=== PATIENT | female | born 1955 | race Caucasian/White ===

== ENCOUNTER 2017-07-28 23:50 | Emergency (ER) | payer OTHER ==
[~2017-07-28] VITALS: Ht 157.5 cm; Wt 86.2 kg
[~2017-07-28 23:50] MED LIST: ACET-787 PO; ALPR0.5T2 PO; ARIP15TA1 PO; ARIP30TA1 PO; ATOR40TA PO; ATRO1TAB PO; BEN10 PO; CARI350T PO; FLUO-387 PO; IPRA14.7 IH; METF500T PO; OMEP40EC1 PO; PAM25 PO; PARO40TA1 PO; SOLI10TA PO; TRAM50TA1 PO; TRAZ-286 PO; [UNRECOGNIZED DRUG - CODE] TD
--- NOTE | 2017-07-28 23:55 | NUR ---
PT TO ER BED 4
[2017-07-29] VITALS: BP 128/51
--- NOTE | 2017-07-29 | NUR ---
PATIENT IS A 61 Y/O FEMALE WHO PRESENTS TO THE ED S/P FALL. PT STATES THAT SHE WAS WALKING DOWN HER DRIVEWAY WHEN SHE FELL. PT REPORTS 7/10 ACHING LEFT ARM AND KNEE PAIN. NOTED SMALL LAC TO RIGHT KNEE, CONTROLLED BLEEDING. LEG CONTAINS FULL ROM, NO OBVIOUS DEFORMITY NOTED, CMS INTACT. PT AAOX4, RR EVEN/UNLABORED. PT REPOSITIONED FOR COMFORT, BED IN LOWEST POSITION. ER MD DR. PEREZ NOTIFIED. WILL CONTINUE TO MONITOR. Addendum: 07/29/17 at 0023 by [email or web address] PATIENT IS A 61 Y/O FEMALE WHO PRESENTS TO THE ED S/P FALL. PT STATES THAT SHE WAS WALKING DOWN HER DRIVEWAY WHEN SHE FELL. PT REPORTS 7/10 ACHING R ARM AND KNEE PAIN. NOTED SMALL LAC TO RIGHT KNEE, CONTROLLED BLEEDING. LEG CONTAINS FULL ROM, NO OBVIOUS DEFORMITY NOTED, CMS INTACT. PT AAOX4, RR EVEN/UNLABORED. PT REPOSITIONED FOR COMFORT, BED IN LOWEST POSITION. ER MD DR. PEREZ NOTIFIED. WILL CONTINUE TO MONITOR.
[2017-07-29] MEDS ORDERED: KETOROLAC 30 MG/ML VIAL IM ONE (00:25)
--- NOTE | 2017-07-29 01:30 | NUR ---
PATIENT RESTING AT THIS TIME. NO SIGNS OF DISTRESS.
[2017-07-29 02:34] VITALS: BP 119/65
--- NOTE | 2017-07-29 02:34 | NUR ---
Patient discharged with v/s stable. Written and verbal after care instructions given and explained. Patient alert, oriented and verbalized understanding of instructions. Ambulatory with steady gait. All questions addressed prior to discharge. ID band removed. Patient advised to follow up with PMD. Rx of NORCO 5MG-325MG AND NAPROSYN 500MG given. Patient educated on indication of medication including possible reaction and side effects. Opportunity to ask questions provided and answered.
== END 2017-07-29 02:34 | disposition home or self-care (01) ==
LOC: MED 23:50
DX: S81.011A Laceration without foreign body, right knee, initial encounter (principal); S53.401A Unspecified sprain of right elbow, initial encounter; J44.9 Chronic obstructive pulmonary disease, unspecified; E11.9 Type 2 diabetes mellitus without complications; I10 Essential (primary) hypertension; Z90.49 Acquired absence of other specified parts of digestive tract; Z90.710 Acquired absence of both cervix and uterus; Z79.899 Other long term (current) drug therapy; W01.0XXA Fall on same level from slipping, tripping and stumbling without subsequent striking against object, initial encounter; Y93.89 Activity, other specified; Y92.89 Other specified places as the place of occurrence of the external cause; Y99.8 Other external cause status
CPT/HCPCS: 12001; 29105; 73080; 73560; 96372; 99284; J1885; Q0092